=== PATIENT | female | born 1955 | race Caucasian/White ===

== ENCOUNTER 2020-08-18 11:54 | Emergency (ER) | payer MEDICARE, OTHER ==
[~2020-08-18 11:54] MED LIST: ATORVASTATIN CA40 MG PO; AUGMENTIN 875-1 EACH PO; CITALOPRAM HBR40 MG PO; CYCLOBENZAPRINE10 MG PO; ELAVIL 10 MG TA10 MG PO; FOSAMAX70 MG PO; MECLIZINE HCL25 MG PO; METOCLOPRAMIDE10 MG PO; METOPROLOL TART25 MG PO; MIRALAX17 GM PO; MOBIC15 MG PO; NEURONTIN800 MG PO; NITROSTAT0.4 MG SL; OMEPRAZOLE20 MG PO; OXYBUTYNIN CHLO15 MG PO; OXYCODONE HCL10 MG PO; OXYMORPHONE HCL20 MG PO; PREMPRO 0.3 MG1 EACH PO; PROTONIX 40 MG40 M1 PO; REQUIP5 MG PO; SUMATRIPTAN SU100 MG PO; VITAMIN D21250 MCG PO; ZOFRAN4 MG PO
[2020-08-18] MEDS ORDERED: AUGMENTIN 875-1 EACH PO (15:04)
== END 2020-08-18 15:12 | disposition home or self-care (01) ==
LOC: ER1 11:54
DX: S90.852A Superficial foreign body, left foot, initial encounter (principal); Z79.899 Other long term (current) drug therapy; W25.XXXA Contact with sharp glass, initial encounter; Y92.009 Unspecified place in unspecified non-institutional (private) residence as the place of occurrence of the external cause
CPT/HCPCS: 10120; 73630; 99283

== ENCOUNTER → 2020-08-21 | Outpatient (CLI) | payer MEDICARE, OTHER | LOC: KOH-I 13:36 | DX: S90.852A Superficial foreign body, left foot, initial encounter (principal); W25.XXXA Contact with sharp glass, initial encounter | CPT/HCPCS: 73630 ==

== ENCOUNTER 2020-09-08 03:58 | Emergency (ER) | payer MEDICARE, OTHER ==
[2020-09-08 05:20] LABS: RED BLOOD COUNT 4.35 M/UL (4.00-5.10); WHITE BLOOD COUNT 8.3 K/UL (4.5-11.0)
[2020-09-08 05:42] LABS: BUN/CREATININE RATIO 24 (0-10)
== END 2020-09-08 09:40 | disposition home or self-care (01) ==
LOC: ER1 03:58
PROVIDERS: Emergency Medicine
DX: S01.81XA Laceration without foreign body of other part of head, initial encounter (principal); K44.9 Diaphragmatic hernia without obstruction or gangrene; Z79.01 Long term (current) use of anticoagulants; W01.0XXA Fall on same level from slipping, tripping and stumbling without subsequent striking against object, initial encounter; Y92.009 Unspecified place in unspecified non-institutional (private) residence as the place of occurrence of the external cause
CPT/HCPCS: 12014; 70450; 71045; 72125; 80053; 82550; 82553; 83605; 84484; 85025; 85610; 85730; 93005; 96374; 96375; 99284; J2270; J2405; Q9967